=== PATIENT | female | born 1985 | race Caucasian/White ===

== ENCOUNTER 2018-10-29 08:41 | Inpatient (IN) | payer BC ==
--- NOTE | 2018-10-29 09:01 | EDPHY ---
H & P Stated Complaint: 6mos anxiety/panic. Denies SI/HI/hallucinations Time Seen by Provider: 10/29/18 09:01 HPI/ROS: HPI: This is a 33-year-old female who presents with Chief Complaint: 6mos anxiety/panic. Denies SI/HI/hallucinations Location: Psychiatric Quality: Anxiety, panic attack Duration: 6 months Signs and Symptoms: no auditory hallucinations, no visual hallucinations, no suicidal ideation with a plan, no homicidal ideation, no paranoia Timing: Chronic Severity: Moderate Context: Patient presents with complaints of 6 months of worsening severe anxiety accompanied by panic attacks that have been occurring several times per week over the last few weeks. She has seen a counselor only several times in her lifetime. She feels that she cannot function as anxiety has become so severe. She is requesting a mental health evaluation and treatment. She does not take regular psychiatric medications. She does not have a formal diagnosis of depression or anxiety. Modifying Factors: None Comment: ROS: A comprehensive 10 system review of systems is otherwise negative aside from elements mentioned in the history of present illness. MEDICAL/SURGICAL/SOCIAL HISTORY: Medical history: Generally healthy. Does not take any regular medications. Last menstrual period ended 3 days ago. Surgical history: Denies Social history: Never smoked. Lives in [place], [place]. works as a military police officer. Family history depression and anxiety. CONSTITUTIONAL: Tearful, holding her arms across her chest, well dressed adult white female, awake and alert, no obvious distress HEENT: Atraumatic and normocephalic, PERRL, EOMI. Nares patent; no rhinorrhea; no nasal mucosal edema. Tympanic membranes clear. Oropharynx clear, no exudate and moist pink mucosa. Airway patent. No lymphadenopathy. No meningismus. Cardiovascular: Normal S1/S2, regular rate, regular rhythm, without murmur rub or gallop. PULMONARY/CHEST: Symmetrical and nontender. Clear to auscultation bilaterally. Good air movement. No accessory muscle usage. ABDOMEN: Soft, nondistended, nontender, no rebound, no guarding, no peritoneal signs, no masses or organomegaly. No CVAT. EXTREMITIES: 2/2 pulses, strength 5/5, no deformities, no clubbing, no cyanosis or edema. NEUROLOGICAL: no focal neuro deficits. GCS 15. SKIN: Warm and dry, no erythema. no rash. Good capillary refill. PSYCH: Good eye contact, no flight of ideas, organized thought process, good insight and judgment, no auditory hallucinations, no visual hallucinations, no suicidal ideation with a plan, no homicidal ideation, no paranoia Source: Patient, RN/MD Exam Limitations: No limitations - Personal History Current Tetanus/Diphtheria Vaccine: Yes - Medical/Surgical History Hx Asthma: No Hx Chronic Respiratory Disease: No Hx Diabetes: No Hx Cardiac Disease: No Hx Renal Disease: No Hx Cirrhosis: No Hx Alcoholism: No Hx HIV/AIDS: No Hx Splenectomy or Spleen Trauma: No Other PMH: none - Social History Smoking Status: Never smoked Constitutional: Initial Vital Signs Temperature (C) 36.8 C 10/29/18 08:47 Heart Rate 98 10/29/18 08:47 Respiratory Rate 18 10/29/18 08:47 Blood Pressure 131/91 H 10/29/18 08:47 O2 Sat (%) 98 10/29/18 08:47 O2 Delivery Mode Room Air Allergies/Adverse Reactions: No Known Allergies Allergy (Unverified 10/29/18 08:47) Home Medications: Medication Instructions Recorded NK [No Known Home Meds] 10/29/18 Medical Decision Making ED Course/Re-evaluation: Voluntary mental health assessment patient does not meet hold criteria. Labs and urine drug screen ordered per [facility] request. Given p.o. Ativan 1 mg. 0940: Notified by RN that patient is politely declining Ativan 1000: Laboratory studies reviewed and grossly unremarkable. Urine drug screen negative. Medically clear for mental health evaluation. 1005: [facility] evaluating patient at bedside. 1450: Notified by [facility] that patient is accepted by JAGRUTI Barreto at [facility] for inpatient psychiatric admission. EMTALA form completed. This patient was seen under the supervision of my secondary supervising physician. I evaluated and cared for this patient with attending. Differential Diagnosis: Differential diagnosis includes but is not limited to major depression, anxiety disorder, schizophrenia, bipolar disorder, intoxicant use, suicidal ideation, psychosis, shannon. - Data Points Laboratory Results: Laboratory Results 10/29/18 09:35 10/29/18 09:35 10/29/18 10/29/18 10/29/18 09:35 09:35 09:35 WBC 6.66 10^3/uL 10^3/uL (3.80-9.50) RBC 5.20 10^6/uL 10^6/uL (4.18-5.33) Hgb 15.7 g/dL g/dL (12.6-16.3) Hct 45.0 % % (38.0-47.0) MCV 86.5 fL fL (81.5-99.8) MCH 30.2 pg pg (27.9-34.1) MCHC 34.9 g/dL g/dL (32.4-36.7) RDW 11.8 % % (11.5-15.2) Plt Count 470 10^3/uL H 10^3/uL (150-400) MPV 9.4 fL fL (8.7-11.7) Neut % (Auto) 67.7 % % (39.3-74.2) Lymph % (Auto) 20.4 % % (15.0-45.0) Benson % (Auto) 9.0 % % (4.5-13.0) Eos % (Auto) 2.0 % % (0.6-7.6) Baso % (Auto) 0.6 % % (0.3-1.7) Nucleat RBC Rel Count 0.0 % % (0.0-0.2) Absolute Neuts (auto) 4.51 10^3/uL 10^3/uL (1.70-6.50) Absolute Lymphs (auto) 1.36 10^3/uL 10^3/uL (1.00-3.00) Absolute Monos (auto) 0.60 10^3/uL 10^3/uL (0.30-0.80) Absolute Eos (auto) 0.13 10^3/uL 10^3/uL (0.03-0.40) Absolute Basos (auto) 0.04 10^3/uL 10^3/uL (0.02-0.10) Absolute Nucleated RBC 0.00 10^3/uL 10^3/uL (0-0.01) Immature Gran % 0.3 % % (0.0-1.1) Immature Gran # 0.02 10^3/uL 10^3/uL (0.00-0.10) Sodium 141 mEq/L mEq/L (135-145) Potassium 3.9 mEq/L mEq/L (3.5-5.2) Chloride 107 mEq/L mEq/L (97-110) Carbon Dioxide 21 mEq/l L mEq/l (22-31) Anion Gap 13 mEq/L mEq/L (6-14) BUN 12 mg/dL mg/dL (7-23) Creatinine 0.6 mg/dL mg/dL (0.6-1.0) Estimated GFR > 60 Glucose 91 mg/dL mg/dL (70-100) Calcium 9.8 mg/dL mg/dL (8.5-10.4) Beta HCG, Qual NEGATIVE Urine Opiates Screen Urine Barbiturates Ur Phencyclidine Scrn Ur Amphetamine Screen U Benzodiazepines Scrn Urine Cocaine Screen U Marijuana (THC) Screen Ethyl Alcohol < 10 mg/dL mg/dL (0-10) 10/29/18 09:20 WBC RBC Hgb Hct MCV MCH MCHC RDW Plt Count MPV Neut % (Auto) Lymph % (Auto) Benson % (Auto) Eos % (Auto) Baso % (Auto) Nucleat RBC Rel Count Absolute Neuts (auto) Absolute Lymphs (auto) Absolute Monos (auto) Absolute Eos (auto) Absolute Basos (auto) Absolute Nucleated RBC Immature Gran % Immature Gran # Sodium Potassium Chloride Carbon Dioxide Anion Gap BUN Creatinine Estimated GFR Glucose Calcium Beta HCG, Qual Urine Opiates Screen NEGATIVE (NEGATIVE) Urine Barbiturates NEGATIVE (NEGATIVE) Ur Phencyclidine Scrn NEGATIVE (NEGATIVE) Ur Amphetamine Screen NEGATIVE (NEGATIVE) U Benzodiazepines Scrn NEGATIVE (NEGATIVE) Urine Cocaine Screen NEGATIVE (NEGATIVE) U Marijuana (THC) Screen NEGATIVE (NEGATIVE) Ethyl Alcohol Medications Given: Discontinued Medications Lorazepam (Ativan) 1 mg PO EDNOW ONE Stop: 10/29/18 09:15 Last Admin: 10/29/18 09:44 Dose: Not Given Departure - Departure Disposition: Other Psych, Not Chi Clinical Impression: Anxiety disorder Qualifiers: Anxiety disorder type: generalized anxiety disorder Qualified Code(s): F41.1 - Generalized anxiety disorder Condition: Fair
[2018-10-29] MEDS ORDERED: LORazepam 1 MG TAB PO ONE (09:14)
[2018-10-29 09:45] LABS: PLATELET COUNT 470 10^3/uL (150-400)
[2018-10-29] MEDS ORDERED: MAG HYDROX/AL HYDROX/SIMETH 30 ML UDCUP PO PRN (16:23)
[2018-10-29] MEDS ORDERED: ACETAMINOPHEN 325 MG TAB PO PRN (16:23)
[2018-10-29] MEDS ORDERED: NICOTINE POLACRILEX 2 MG GUM B PRN (16:23)
[2018-10-29] MEDS ORDERED: MAGNESIUM HYDROXIDE 30 ML UDCUP PO PRN (16:23)
[2018-10-29] MEDS ORDERED: LORazepam 0.5 MG TAB PO PRN (16:23)
--- NOTE | 2018-10-29 16:44 | PDHOSCONS ---
History and Physical - Chief Complaint severe anxiety/SI - History of Present Illness 33 yo F with no significant PMH presenting for complaints of severe and worsening anxiety. She notes she has had some issues with anxiety for a long time and intermittent panic attacks but that since June these sxs have all been worsening in severity and frequency and to the point where she did not know what else to do other than come to the hospital. She states that if we do not keep her here, she is not sure what she will do and is afraid she will hurt herself. She denies a plan or intention to kill herself. She has never had severe psychiatric issues in the past, never been to a psych hospital before. She notes she has had no appetite for the last several months and has lost over 20 pounds. She has not been able to sleep much, only getting an hour or two per night. She denies any changes in her health otherwise, has no chronic medical issues that she is aware of. She has begun seeing a counselor but only gone a couple of times and despite that things have been getting worse. She does not take any medications and is hesitant to take any as she tends to respond very severely to all medications and is afraid she will have a bad reaction. History Information - Allergies/Home Medication List Allergies/Adverse Reactions: No Known Allergies Allergy (Unverified 10/29/18 08:47) Home Medications: NK [No Known Home Meds] 10/29/18 [Last Taken Unknown] I have personally reviewed and updated: family history, medical history, social history, surgical history - Past Medical History psychiatric history - Surgical History Additional surgical history: wisdom tooth removal - Family History Positive for: hypertension (sister) - Social History Smoking Status: Never smoked Alcohol Use: Rarely Drug Use: None Additional social history: , works in private finance, no children Review of Systems Review of Systems: ROS: 10pt was reviewed & negative except for what was stated in HPI & below Physical Exam Physical Exam: Temp Pulse Resp BP Pulse Ox 36.6 C 90 16 130/80 H 99 10/29/18 16:04 10/29/18 16:04 10/29/18 16:04 10/29/18 16:04 10/29/18 16:04 Constitutional: appears nourished, not in pain Eyes: PERRL, anicteric sclera Ears, Nose, Mouth, Throat: moist mucous membranes, hearing normal Cardiovascular: regular rate and rhythym, no murmur, rub, or gallop Respiratory: no respiratory distress, no rales or rhonchi Gastrointestinal: normoactive bowel sounds, soft, non-tender abdomen Genitourinary: no bladder tenderness Skin: warm, normal color Musculoskeletal: full muscle strength Neurologic: AAOx3 Psychiatric: anxious, depressed Lab Data & Imaging Review 10/29/18 09:35 10/29/18 09:35 WBC 6.66 10^3/uL (3.80-9.50) 10/29/18 09:35 RBC 5.20 10^6/uL (4.18-5.33) 10/29/18 09:35 Hgb 15.7 g/dL (12.6-16.3) 10/29/18 09:35 Hct 45.0 % (38.0-47.0) 10/29/18 09:35 MCV 86.5 fL (81.5-99.8) 10/29/18 09:35 MCH 30.2 pg (27.9-34.1) 10/29/18 09:35 MCHC 34.9 g/dL (32.4-36.7) 10/29/18 09:35 RDW 11.8 % (11.5-15.2) 10/29/18 09:35 Plt Count 470 10^3/uL (150-400) H 10/29/18 09:35 MPV 9.4 fL (8.7-11.7) 10/29/18 09:35 Neut % (Auto) 67.7 % (39.3-74.2) 10/29/18 09:35 Lymph % (Auto) 20.4 % (15.0-45.0) 10/29/18 09:35 [place] % (Auto) 9.0 % (4.5-13.0) 10/29/18 09:35 Eos % (Auto) 2.0 % (0.6-7.6) 10/29/18 09:35 Baso % (Auto) 0.6 % (0.3-1.7) 10/29/18 09:35 Nucleat RBC Rel Count 0.0 % (0.0-0.2) 10/29/18 09:35 Absolute Neuts (auto) 4.51 10^3/uL (1.70-6.50) 10/29/18 09:35 Absolute Lymphs (auto) 1.36 10^3/uL (1.00-3.00) 10/29/18 09:35 Absolute Monos (auto) 0.60 10^3/uL (0.30-0.80) 10/29/18 09:35 Absolute Eos (auto) 0.13 10^3/uL (0.03-0.40) 10/29/18 09:35 Absolute Basos (auto) 0.04 10^3/uL (0.02-0.10) 10/29/18 09:35 Absolute Nucleated RBC 0.00 10^3/uL (0-0.01) 10/29/18 09:35 Immature Gran % 0.3 % (0.0-1.1) 10/29/18 09:35 Immature Gran # 0.02 10^3/uL (0.00-0.10) 10/29/18 09:35 Sodium 141 mEq/L (135-145) 10/29/18 09:35 Potassium 3.9 mEq/L (3.5-5.2) 10/29/18 09:35 Chloride 107 mEq/L (97-110) 10/29/18 09:35 Carbon Dioxide 21 mEq/l (22-31) L 10/29/18 09:35 Anion Gap 13 mEq/L (6-14) 10/29/18 09:35 BUN 12 mg/dL (7-23) 10/29/18 09:35 Creatinine 0.6 mg/dL (0.6-1.0) 10/29/18 09:35 Estimated GFR > 60 10/29/18 09:35 Glucose 91 mg/dL (70-100) 10/29/18 09:35 Calcium 9.8 mg/dL (8.5-10.4) 10/29/18 09:35 Beta HCG, Qual NEGATIVE 10/29/18 09:35 Urine Opiates Screen NEGATIVE (NEGATIVE) 10/29/18 09:20 Urine Barbiturates NEGATIVE (NEGATIVE) 10/29/18 09:20 Ur Phencyclidine Scrn NEGATIVE (NEGATIVE) 10/29/18 09:20 Ur Amphetamine Screen NEGATIVE (NEGATIVE) 10/29/18 09:20 U Benzodiazepines Scrn NEGATIVE (NEGATIVE) 10/29/18 09:20 Urine Cocaine Screen NEGATIVE (NEGATIVE) 10/29/18 09:20 U Marijuana (THC) Screen NEGATIVE (NEGATIVE) 10/29/18 09:20 Ethyl Alcohol < 10 mg/dL (0-10) 10/29/18 09:35 Assessment & Plan Assessment: Anxiety disorder (Acute) 33 yo F with no significant PMH presenting with worsening anxiety and SI # anxiety: patient notes that her anxiety has become increasingly severe, to the point where she no longer feels safe and is concerned she could hurt herself. She describes frequent panic attacks. She refused ativan in the ER and states she is very hesitant to try any medications as she is very sensitive to meds. Voluntary admit to BH unit, medically clear for whatever treatment is felt to be appropriate per psychiatric service. Do not see any obvious medical condition that could be contributing to her issues # thrombocytosis: mildly elevated platelets with otherwise normal CBC, recommend op f/u # tachycardia: intermittent tachycardia in the setting of severe anxiety and likely related to same Patient new to my care. Old records reviewed and summarized as above. Care plan reviewed with ER doctor. Thank you for this consultation. Please contact medicine service if questions arise during her hospitalization.
--- NOTE | 2018-10-29 16:47 | ASMTTCLDSP ---
[facility] Discharge Disposition Disposition: Answers: Admit Disposition Notes: Notes: In consultation with [facility] ED physician, Dre Saenz MD and on-call psychiatrist, Yang Tipton MD, Per directive and order from [facility] on-call psychiatrist, Yang Tipton MD agreed to accept pt for voluntary admission on the inpt unit at [facility]. Pt agreed to admission as a voluntary pt. . Pt was read the Patient Rights and Responsibilities Statement on 10/29/18. Pt was given the 3[facility] prohibited belongings list while in the ED. Was patient given the Answers: Yes Inpatient Behavioral Health Prohibited Belongings List while in the ED? For inpatient Yang Tipton MD admission, the following psychiatrist agreed to accept patient for admission to Behavioral Health ([facility]): Hold initiated by: Answers: Other Notes: voluntary admit Date Signed: 10/29/2018 04:47 PM Electronically Signed By:Ariane Longoria
--- NOTE | 2018-10-29 17:30 | ASMTTLCEVL ---
[facility] Evaluation - Basic Information Evaluation Start Date and 10/29/2018 10:00 AM Time Hospital Status Answers: Voluntary Patient statement Notes: Nica been having a lot of anxiety lately. My anxiety has been paralyzing. I have these random obsessive thoughts that take over. I find myself obsessively checking things and being fearful of everything. It has been hard to function on my job. I feel I cannot function as my anxiety has become so severe. Narrative Notes: Pt is a 33 year old , female who self presented to the [facility] ED due to recent panic attacks and increased anxiety over the past 6 months. Pt presents with worsening anxiety accompanied by panic attacks that have been occurring several times per week over the past few weeks. She has seen a counselor recently, a new counselor over the past few weeks on a biweekly basis. Pt reported she feels as if her anxiety is becoming so severe that she cannot function. Pt requested a mental health evaluation and treatment. Pt has no hx of any formal dx. and has no hx of taking any psychotropic medications. Pt reported example of obsessive thoughts and worries that are interfering with her daily functioning such as irrationally fears that she may have a STD which is unwarranted. Pt reported poor appetite loosing up to 20 lbs without an attempt over the past 2-3 months. Pt also stated she has experienced severe sleep problems such as waking up multiple times during the night with difficulty falling back asleep. Pt reported passive SI with no plan but in a general sense she understands why people would end their life if they felt like her and feels she could not go on living like she is in her current state. Diagnosis History Notes: Pt has no hx of any formal dx for a mental health or physical problem. Prior suicide attempts Notes: Pt denied any prior suicide attempts. Prior hospitalizations Notes: Pt has no reported hx of past hospitalizations. Treatment Responses Notes: No prior treatment response hx other than prior outpt counseling. History of violence Notes: Pt denied any hx of violence. Therapist: recently started with an outpt therapist Psychiatrist: none Medications (name, dosage, route, freq uency) Notes: Pt is not taking any prescribed medications and denied any prior hx of medications for any mental health reason. Allergies/Reaction Notes: No known allergies were reported. Sleep Notes: Pt stated she has experienced severe sleep problems such as waking up multiple times during the night with difficulty falling back asleep. Appetite Notes: Pt reported poor appetite loosing up to 20 lbs without an attempt over the past 2-3 months. Medical/Surgical history Notes: No medical problems or hx of past surgeries were reported. Substance use history (frequency, intensity, his tory, duration) Notes: Pt stated she drinks about 2 times a month giving a hx of consuming 1-2 drinks per occasion. Pt denied any hx of past alcohol use problems/abuse and denied any hx of past substance use/abuse. Family composition Notes: Pt has an older sister and a younger brother. Her parents are . All of her family lives in the area. Pt described her family as supportive. She reports seeing her extended family about once a week. Need for family Answers: Yes participation in patient's care Family psychiatric/substance abuse history Notes: Pt stated her paternal grandmother of alcohol abuse related problems before pt was born. There is some family hx on the maternal side of family with 2 aunts who have problems with anxiety and maybe bipolar disorder. Developmental history Notes: Pt denied any hx of developmental problems or delay. There was no report of any past hx of any childhood dx such as ADD or ADHD. Abuse concerns Answers: None Marital status/children Notes: Pt 6 years ago. She denied any marital problems. They have no children. Living situation Notes: Pt lives with her in [place]. Both sides of the family lives close by. Sexual history/orientation Notes: Heterosexual. Peer support/family strengths Notes: Between family and nursing home friends pt reported feeling as if she has a strong support network. Education level/history Notes: Pt graduated from [employer] in 2007. She has a degree in Political Science. Work history Notes: Pt is employed with a private [employer] where she has worked for the past 6 years. 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 Pt reported she has been experiencing work performance problems but denied any disciplinary problems. Notes: No background. Legal Notes: Pt denied any legal problems. Uatsdin/Spiritual Notes: Pt identifies as a Jehovah'S Witness and reports she attends hinduism services on a regular basis. Leisure Notes: Pt enjoys being outdoors, hiking, gardening and reading. She also on occasion does art work. Collateral Notes: Collateral inform was obtained from pt's parents. Parents appeared supportive of pt.'s admission. Patient's strengths Answers: Good Friend to Others (Please select at least TWO strengths): Honest Insightful Intelligent Motivated for Treatment Responsible/Dependable Supportive/Compassionate Supportive Family Willingness [facility] Evaluation - Mental Status Exam Appearance: Answers: Appropriate Eye Contact: Answers: Appropriate for Culture Good/Direct Mood: Answers: Depressed Sad Affect: Answers: Anxious Apprehensive Congruent w/ Mood Constricted Fearful Flat Sad Tearful Behavior: Answers: Cooperative Anxious Fatigued Fearful Restless Speech: Answers: Relevant Clear Coherent Thought Process: Answers: Organized Oriented Alert Intact Racing Thoughts Insight: Answers: Fair Judgement: Answers: Good Manic Signs/Symptoms Answers: Distractibility Impulsivity Irritability Mood Swings Racing Thoughts Depression Answers: Crying Spells Signs/Symptoms: Difficulty Concentrating Diminished Interest Diminished Pleasure Sad Mood Worthlessness Anxiety Signs/Symptoms Answers: Generalized Anxiety Obsessive/Compulsive Thoughts/Behavior Panic Attacks Hallucinations: Answers: None Delusions: Answers: Being Controlled Paranoid Ideation Current Stage of Change Answers: Action Pt reported to have Answers: Yes suicidal/self-injuring ideation/behavior? Pt reported to be making Answers: No suicidal/self-injuring threats? Pt reported to have Answers: No aggression/assault ideation/behavior? Pt reported to be making Answers: No aggression/assault threats? Pt exhibits inability to Answers: No care for self/grave disability? Ideation/behavior is Answers: No chronic? Patient has a specific Answers: No plan? Pt has access to means to Answers: No execute the plan? History of Answers: No suicidal/self-injuring ideation, behavior, or threats? History of Answers: No aggressive/assaultive ideation, behavior, or threats? History of serious Answers: No physical harm to self/others while in treatment setting? [facility] Evaluation - Suicide/Homicide Risk Suicide Risk Factors: Answers: Anxiety/Panic, Severe Global Insomnia Hopelessness Major Depression Rapid Mood Shifts Homicide/violence risk Answers: None factors: Current Suicidal Answers: No Ideation? Current Suicidal Ideation Answers: No in the Past 48 Hours? Suicide Internal Answers: Absence of Psychosis Protective Factors: Suicide External Answers: Positive Therapeutic Protective Factors: Relationships Ranking of patient's Answers: Low suicidal risk: Ranking of patient's Answers: Low homicidal risk: [facility] Evaluation - Wrap-up BDI Total Score: 0 BDI Question #2 Score: 25 BDI Question #9 Score: 1 BSS Total Score: 0 AXIS I Diagnosis (include DSM-V and ICD-10 codes), must also be entered in [employer], which is the source of truth. Notes: Major depressive Disorder, recurrent, severe 296.33 (F33.2) Unspecified Anxiety Disorder 300.00 (F41.9) R/O Obsessive-Compulsive Disorder 300.3 (F42) In consultation with [facility] ED physician, Dre Saenz MD and on-call psychiatrist, Yang Tipton MD, Per directive and order from [facility] on-call psychiatrist, Yang Tipton MD agreed to accept pt for voluntary admission on the inpt BH unit at [facility]. Pt agreed to admission as a voluntary pt. . Pt was read the Patient Rights and Responsibilities Statement on 10/29/18. Pt was given the 3N prohibited belongings list while in the ED. Evaluation End Date and 10/29/2018 12:30 PM Time (HH:MM): Date Signed: 10/29/2018 05:29 PM Electronically Signed By:Ariane Longoria
--- NOTE | 2018-10-30 10:33 | ASMTBHMTP ---
Master Treatment Plan Master Treatment Plan Answers: Depressed Mood with for: Suicidal Ideation Date: 10/29/2018 Diagnosis on Admission: Major depressive Disorder, recurrent, severe 296.33 (F33.2) Expected length of stay: 3-5 days Reason for admission: Notes: Per Report: Pt is a 33 year old , female who self presented to the [facility] ED due to recent panic attacks and increased anxiety over the past 6 months. Pt presents with worsening anxiety accompanied by panic attacks that have been occurring several times per week over the past few weeks. She has seen a counselor recently, a new counselor over the past few weeks on a biweekly basis. Pt reported she feels as if her anxiety is becoming so severe that she cannot function. Pt requested a mental health evaluation and treatment. Pt has no hx of any formal dx. and has no hx of taking any psychotropic medications. Pt reported example of obsessive thoughts and worries that are interfering with her daily functioning such as irrationally fears that she may have a STD which is unwarranted. Pt reported poor appetite loosing up to 20 lbs without an attempt over the past 2-3 months. Pt also stated she has experienced severe sleep problems such as waking up multiple times during the night with difficulty falling back asleep. Pt reported passive SI with no plan but in a general sense she understands why people would end their life if they felt like her and feels she could not go on living like she is in her current state. Patient's stated presenting problems: Notes: "My Anxiety... the levels of anxiety and my inability to regulate them is what brought me here." Patient's goals for treatment: Notes: "I need professional advice on where to go from here." Patient's strengths: Notes: "I don't know" Identify supports outside of hospital: Notes: "My in [facility] [place] Discharge criteria: Notes: Suicidal Ideation will resolve and patient will have a plan to safely manage recurrent suicidal ideation. Initial disposition plan/considerations: Notes: Return home Master Treatment Plan Required Signatures Psychiatrist signature: Answers: Psychiatrist: RN on-shift signature: Answers: RN: Patient signature: Answers: Patient: Date Signed: 10/30/2018 10:33 AM Electronically Signed By:Josesito Ham. .Sallie,R.P
--- NOTE | 2018-10-30 17:06 | BAPA ---
[f rep st] ADMISSION PSYCHIATRIC ASSESSMENT DATE OF SERVICE: 10/30/2018 CHIEF COMPLAINT: "I've been having a lot of anxiety lately. My anxiety has been paralyzing. I have these random obsessive thoughts that take over." HISTORY OF PRESENT ILLNESS: Patient is a 33-year-old woman who came to [facility] ED due to recent panic attacks and increasing anxiety for the past 6 months. Patient says that she has been having panic attacks several times per week for the last several weeks. She started seeing a counselor several weeks ago in [place]. She says that she feels like her anxiety is becoming so overwhelming that she cannot function. She told the [facility] cube machine tender "I find myself obsessively checking things and being fearful of everything. It' s been hard to function on my job. I feel I can't function as my anxiety has become so severe." Patient said an example of an intrusive thought that she has is thinking that she might have an STD, although she admits that she has no reason to think that her is having sex with anyone other than her and she recognizes that these fears are "irrational." However, patient says that she cannot stop thinking about it. Patient also reports a decreased appetite, 20-pound weight loss over the past 2 to 3 months. She says that she has also been having trouble sleeping, waking up multiple times during the night, having difficulty falling back to sleep. Patient states that she does not feel like she can go on living like this in her current state; however, she denies any intent or plan to hurt herself or anyone else. She says that she is "not really thinking about suicide" but just says that she wants to get help and she does not want her life to be this way. On the inpatient Behavioral Health Services unit, the patient is calm, pleasant , cooperative. She denies feeling sad, helpless, hopeless, worthless, or depressed. She reports that her anxiety has been better since she was admitted to the hospital. She denies having had any panic attacks since she was admitted. Today, she is well dressed and appropriately groomed. She attended group therapy sessions. She denied any physical complaint. When MD met with the patient, MD talked at length about options for treating her anxiety as well as her problems with sleep and appetite. MD recommended taking an antidepressant, anxiolytic, and mentioned that the first-line of treatment for anxiety disorders are the SSRI medications or other similar medications. The patient stated that she was not interested in being on an antidepressant medication. She says "I'm quite educated about those" and stated that she does not believe that medications are what she needs at this time. The patient denied experiencing any psychotic symptoms. She denied auditory and visual hallucinations, ideas of reference, bizarre thoughts, and paranoid delusions. The patient did not have any signs or symptoms of shannon. She did not have racing thoughts, pressured speech, increase in goal-directed activity, decreased need for sleep, elevated elated mood or grandiose delusions. PAST PSYCHIATRIC HISTORY: The patient states that she has never seen a psychiatrist, has never received a psychiatric diagnosis, has never taken medications for any type of mental health problem. She has no prior psychiatric hospitalization. She denies ever contemplating suicide or ever making a suicide attempt. She only started seeing a therapist a few weeks ago when her anxiety started becoming so bad that she was having a hard time functioning at her job. ALLERGIES: The patient has no known drug allergies. CURRENT MEDICATIONS: The patient currently does not take any medications. MEDICAL HISTORY: The patient has no chronic medical issues. No acute physical problems. She has a prior history of wisdom teeth removal and no other surgical history. LABORATORY DATA: White cell count 6.66, hemoglobin 15.7, hematocrit 45.0, platelet count 470. Sodium 141, potassium 3.9, chloride 107, BUN 12, creatinine 0.6, glucose 91. Hemoglobin A1c 5.3. LFTs were within normal limits. Her cholesterol was 224. Her TSH was 1.22. Beta hCG was negative. Urine drug screen was negative. SOCIAL HISTORY: Patient's parents are . All of her family live in the area. She describes her family as very supportive. She sees her extended family about once a week. She has an older sister and a younger brother. Patient has been for 6 years. She denies any marital problems. She has no children. She lives with her in [place]. She is close to both sides of her family. She graduated from [employer] in 2007, with a degree in political science. She is currently employed with a private [employer] where she has worked for the last 6 years. FAMILY HISTORY: Patient reports that her paternal grandmother of alcohol- related issues before she was born. There is a family history of anxiety on her mother's side. SUBSTANCE ABUSE HISTORY: Patient states that she drinks alcohol twice a month, consuming 1 to 2 drinks per occasion. She denies use of any other substances. LEGAL HISTORY: Patient denies any current legal issues. MENTAL STATUS EXAMINATION: This is a short, overweight woman who is well groomed and appropriately dressed. She is wearing tights, calf socks outside of her tights, a T-shirt, and a long-sleeved sweater. She makes good eye contact. She is alert and oriented x4. Her demeanor is appropriate. Her speech rate and volume are within normal limits. Her intellectual function appears to be average based upon her educational history, fund of knowledge, and vocabulary. She currently denies feeling sad, helpless, hopeless, worthless. She does report that she has problems with anxiety and panic, which are presenting symptoms, but says that she has had no panic attacks since she has been in the hospital and she reports that her anxiety is less here than it had been prior to her admission. She denies all symptoms of psychosis including denying paranoid delusions, auditory and visual hallucinations, ideas of reference and bizarre thoughts. There are no signs or symptoms of shannon present. Her thought process is linear and goal directed. Her insight and judgment are both good. IMPRESSION: 1. Anxiety disorder, not otherwise specified. 2. Panic disorder without agoraphobia. 3. Rule out major depressive disorder. PLAN: 1. Admit to the inpatient Behavioral Health Services unit on a voluntary basis. 2. Monitor closely for safety. The patient is currently not exhibiting any signs of unsafe behavior. She is acting appropriately. She told the [facility] cube machine tender that she does not want to live with her anxiety at this level; however , the patient denies that she has had any intention of harming herself in any way. Despite her anxiety having been worse over the last several weeks, she says that suicide is not an option for her. She says that she has no thoughts, plans, or intents to hurt herself or anyone else. 3. We will continue to monitor and observe the patient. This MD spent a great deal of time talking to the patient about possible psychopharmacological treatments for her anxiety. MD also pointed out to the patient that she has several criteria of depression, including decreased appetite, loss of weight, and difficulty sleeping. However, the patient does not meet enough criteria to warrant a diagnosis of MDD at this time. It is unclear whether these symptoms are more likely attributed to her anxiety disorder or whether there is a significant component of depression. MD talked to the patient about treating both her anxiety and possible depression with an antidepressant. Specifically, MD mentioned a class of medications commonly referred to as SSRIs. The patient states that she is "quite well educated" about SSRIs and states that she does not want to be on an antidepressant medication. In fact, the patient says that she is opposed to taking psychotropic medications and wants to find "alternative " ways of dealing with her problems. She is willing and agreeable to doing individual psychotherapy and talk therapy. She is also willing to go to groups. She tells MD that she wants to learn some "tools" and also some " coping skills" to help manage her stress levels as well as help manage her anxiety. Patient said she has not been working with her current therapist long enough for it to be "helpful." MD asked the patient if she wanted referrals for another therapist, and she said "no" that she intended to continue to see her current therapist in [place]. MD recommended group therapy and possibly an IOP program. MD also mentioned the DBT IOP program that is offered through the [facility]. Patient says she would prefer to go to [facility], which is closer to her in [place]. 4. Patient stated that she was very "disappointed" with the treatment that she was receiving in the hospital. She said that she expected to have "my own therapist." MD let the patient know that the inpatient facility is an acute stabilization unit and stays are very short and that individual psychotherapy is not one of the treatment modalities that is offered. MD explained the goal is to get patients back to their normal level of functioning and send them home to follow up with outpatient providers as needed. The patient states, "I had different expectations of what this was going to be like." MD asked the patient to consider taking an SSRI to help with her anxiety and her depression and possibly a low-dose antipsychotic medication to help with some of the negative intrusive thoughts that she has been having. The patient says she does not want to take antidepressants or anxiolytics and that she does not want to be on antipsychotic medication. She is adverse to taking psychotropic medications and feels that they are not necessary for her. The patient stated that SSRIs were "off the table" as well as other psychotropic medications at this time, although she said that she would be willing to consider them "down the road" if other treatment options failed. MD asked the patient if she would be willing to stay in the hospital until Thursday morning when the pharmacy care coordinator could try to schedule her a followup appointment either through the [facility] or [facility] near her home in [place]. The patient said that she was not likely to stay, but that she would "think about" some of the options that MD had offered her. 5. Estimated length of stay is 1 to 2 days. /[id number]/MODL MTDD
[2018-10-31 06:55] VITALS: BP 115/69
--- NOTE | 2018-10-31 14:15 | ASMTBHDC ---
Notes Note: Notes: Pt. reports feeling "good". Pt. stated she slept "better". Pt. reports dining "can't seem to get it right" about her meals, adding she is gluten free and a vegetarian Pt. reports she is "not taking any" medications. Pt. reports attending groups and having no issues while on the unit. Pt. reports she "may follow up" with her PCP. Pt. reports she is able to get to her follow up appointment with her therapist. Pt. reports she wants to discharge today, adding her will pick her up at 1pm. Pt. reports she "got some good ideas" while on the unit. Pt. denied SI, HI, AVH and paranoia. Pt. denied needing any additional services which [facility] offered. Pt. presents as alert, calm, good eye contact, odd smiling at times, and cooperative. Staff report pt. sleeping 7 hours and not having any scheduled medications. Pt. has an appointment with her therapist on 11/03 @ 4:30pm. Date Signed: 10/31/2018 02:15 PM Electronically Signed By:Leonor Cruz.SEGUNDO,SALES AND LEASING AGENT,NCC
--- NOTE | 2018-10-31 16:04 | BDS ---
[f rep st] BEHAVIORAL HEALTH DISCHARGE SUMMARY REASON FOR ADMISSION: The patient is a 33-year-old, , woman who came to [facility] ED due to recent panic attacks and increasing anxiety for the past 6 months. The patient says she has been having panic attacks several times per week for the last several weeks. She started seeing a counselor in [place]. She says that she feels like her anxiety is becoming so overwhelming that she cannot function. The patient told the [facility] knitter hand "I find myself obsessively checking things and being fearful of everything. It's been hard to function on my job. I feel I can't function as my anxiety has become so severe." The patient also reports a decreased appetite , 20-pound weight loss over the past 2-3 months, trouble sleeping, waking up multiple times during the night, having difficulty falling back asleep. ADMITTING DIAGNOSES: 1. Anxiety disorder, not otherwise specified. 2. Panic disorder without agoraphobia. 3. Rule out major depressive disorder. ADMITTING PHYSICAL EXAM: Was done by Heri Engle. Please see her H and P for details. There were no abnormal physical findings. She did have intermittent tachycardia which is likely a result of her anxiety and being in the hospital. ADMISSION LABS: White cell count was 6.66, hemoglobin 15.7, hematocrit 45.0, platelet count 470. Sodium was 141, potassium 3.9, chloride 107, BUN 12, creatinine 0.6, glucose 91. Hemoglobin A1c 5.3, calcium 9.8. Her liver function tests were within normal limits. Her cholesterol was 224, triglycerides 123, TSH 1.22. Beta hCG was negative. Urine drug screen was negative. HOSPITAL COURSE: This MD saw the patient for her initial psychiatric assessment on 10/30/2018. At that time, the patient was calm, cooperative, pleasant. Her affect was euthymic. She denied feeling sad, helpless, hopeless , worthless, anxious or depressed. She denied having any thoughts plans or intents to hurt herself or anyone else. MD talked to the patient at length about options for treating her anxiety as well as her problems with sleep and appetite. The MD recommended an antidepressant and mentioned that the first- line treatment for anxiety disorders including panic disorder are the SSRI medications or other similar antidepressant/angiolytics. The patient said that she was not interested in being on antidepressant medication. She says "I'm quite educated about those" and stated that she does not believe medications are what she needs at this time. The patient denied experiencing any psychotic symptoms. She denied auditory and visual hallucinations, ideas of reference, bizarre thoughts and paranoid delusions. The patient did not have any signs or symptoms of shannon. She did not have racing thoughts, pressured speech, increase in goal-directed activity, decreased need for sleep, elevated or elated mood, or grandiose delusions. The patient has no prior psychiatric history and so she has never seen a psychiatrist. Never been on medications. Never been in a psychiatric hospital before. She only started seeing a counselor a few weeks ago due to her increased levels of anxiety. She said that she has not been engaged in therapy long enough to notice benefit, but she is willing to continue. The MD spent a great deal of time talking to the patient about pharmacologic treatments for her anxiety as well as her intrusive thoughts. The MD pointed out to the patient that she had several criteria of depression including decreased appetite, loss of weight, difficulty sleeping; however, the patient does not meet sufficient criteria to warrant a diagnosis of MDD at this time. It is unclear whether these symptoms are attributable to her anxiety or whether there is a significant component of depression in addition to the anxiety. MD talked to the patient about treating both her anxiety and possible depression with antidepressant. Specifically, the MD talked to her about the class of medications known as SSRIs. The patient said that she is "quite well educated" about SSRIs and says she does not want to be on them. In fact, the patient says she is opposed to taking any psychotropic medications and wants to find "alternative" ways of dealing with her problems. She is willing to continue individual psychotherapy. MD also talked to the patient about group therapy and encouraged the patient to learn some tools and felt some coping skills to help manage her stress more effectively, which will likely help reduce her anxiety and decrease the frequency of her panic episodes. The patient said that she thought this would be a "helpful plan" to pursue, but the patient said that she thought she would get that kind of therapy while she was in the hospital. MD explained to her that the inpatient behavioral unit is a crisis stabilization unit which tries to treat patients who are in crisis either because they are a danger to themselves, a danger to others or gravely disabled , and get them back to their normal level of functioning as quickly as possible and then once they are stable to refer them back to their community providers. Patient said that she did not understand that that is what an inpatient unit was. She thought that she would be getting individual psychotherapy sessions while she was here that would help her learn those coping skills. MD recommended a DBT IOP program that is offered at the [facility] and also told the patient that she could see an individual therapist as well as attend groups in the outpatient clinic at [facility], but patient said that she would prefer to go to [facility], which is close to where she lives in [place]. CONDITION AT DISCHARGE: The patient was stable. Her affect was euthymic. She reports that her mood is "good." She denied feeling sad, helpless, hopeless, worthless, or anxious. She denied having any panic episodes while she was on the inpatient unit. She reported that her anxiety level was decreased, but she did not endorse any thoughts, plans or intents to hurt herself or anyone else. DISCHARGE MEDICATIONS: The patient was not started on any prescription medications during this hospitalization. She was offered SSRIs or similar antidepressant medications to help treat her anxiety and intrusive thoughts as well as help with her sleep, appetite, energy, interest and motivation, but patient declined all psychotropic medications during this hospital stay. DISCHARGE DIAGNOSES: 1. Anxiety disorder, not otherwise specified. 2. Panic disorder without agoraphobia. 3. Rule out major depressive disorder. DISPOSITION: The patient was admitted on a voluntary status. Her came on the day of discharge to pick her up and take her back to their home in [place]. She was given referrals for [facility] DBT IOP as well as providers in her community at [facility]. LEGAL COURSE: The patient was on a voluntary status at the time of discharge. /[id number]/MODL MTDD
== END 2018-10-31 14:23 | disposition home or self-care (01) | DRG 880 ==
LOC: BBEH 16:10
PROVIDERS: ADMIT Internal Medicine; ATTEND Registered Nurse
DX: F41.1 Generalized anxiety disorder (principal); F41.0 Panic disorder [episodic paroxysmal anxiety]
CPT/HCPCS: 80305; G0480